=== PATIENT | male | born 2000 | race African-American/Black ===

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

== ENCOUNTER 2022-01-14 23:02 | Emergency (ER) | payer OTHER ==
[~2022-01-14] VITALS: Ht 175.3 cm; Wt 105.3 kg
[2022-01-14] MEDS ORDERED: DexAMETHasone SOD PHOS 10MG/1ML VIAL INJ IV ONE (23:45)
[2022-01-15 00:44] LABS: Basophils # (auto) 0 10 ^3/uL (0-0.2); Basophils % (auto) 0.4 % (0.0-2.0); Eosinophils # (auto) 0 10 ^3/uL (0-0.8); Eosinophils % (auto) 0.4 % (0.0-7.0); Hematocrit 40.8 % (41.0-53.0); Hemoglobin 14.4 g/dL (13.5-17.5); Lymphocytes # (auto) 1.8 10 ^3/uL (0.4-5.4); Mean Corpuscular Hemoglobin 30.1 pg (28.0-32.0); Mean Corpuscular Hgb Conc. 35.4 g/dL (32.0-36.0); Mean Corpuscular Volume 85.1 fL (80.0-100.0); Monocytes % (auto) 13.4 % (0.0-12.0); Neutrophils # (auto) 4.7 10 ^3/uL (1.6-8.6); Neutrophils % (auto) 61.8 % (37.0-80.0); Nucleated Red Blood Cells % 0.1 %; Red Cell Distribution Width 13.3 % (11.8-14.3); White Blood Cell 7.5 10^3/uL (4.4-10.8)
[2022-01-15 01:01] LABS: Albumin 3.7 g/dL (3.4-5.0); Calcium 8.2 mg/dL (8.5-10.1); Potassium 3.6 mmol/L (3.5-5.1)
[2022-01-15 01:04] LABS: Bilirubin, Total 0.5 mg/dL (0.2-1.0); Total Protein 7.5 g/dL (6.4-8.2)
[2022-01-15] MEDS ORDERED: PENICILLIN G BENZ 1200000 UNITS/2 ML SYRG IM ONE (02:15)
[2022-01-15 03:58] VITALS: BP 121/76
== END 2022-01-15 04:02 | disposition home or self-care (01) ==
LOC: ER 23:08
DX: J03.90 Acute tonsillitis, unspecified (principal)
CPT/HCPCS: 36415; 80053; 83605; 85025; 86308; 87070; 87880; 96372; 99284; J0561; J1100